=== PATIENT | female | born 1990 | race African-American/Black ===

== ENCOUNTER 2017-04-05 22:06 | Emergency (ER) | payer BC, OTHER | END 2017-04-05 23:01 | disposition home or self-care (01) | LOC: ER 22:06 | DX: S29.9XXA Unspecified injury of thorax, initial encounter (principal); S49.92XA Unspecified injury of left shoulder and upper arm, initial encounter; S99.922A Unspecified injury of left foot, initial encounter; V49.9XXA Car occupant (driver) (passenger) injured in unspecified traffic accident, initial encounter | CPT/HCPCS: 71020; 73030-LT; 73660-LT; 99284 ==

== ENCOUNTER 2017-04-20 17:52 | Emergency (ER) | payer BC, OTHER ==
[2017-04-20 20:31] LABS: BASOPHILS 0.4 %; BASOPHILS ABSOLUTE 0.02 10/3/uL (0.0-0.16); EOSINOPHILS ABSOLUTE 0.24 10/3/uL (0.0-0.53); ER CBC TAT 0 Hrs 09 Mins; HEMATOCRIT 36.8 % (36.0-48.0); HEMOGLOBIN 12.4 g/dL (12.0-16.0); LYMPHOCYTES 54.7 %; LYMPHOCYTES ABSOLUTE 2.64 10/3/uL (0.67-4.30); MEAN CORPUS HGB CONC 33.7 g/dL (32.0-36.0); MEAN CORPUSCULAR HEMOGLOB 34.2 pg (26.0-34.0); MEAN PLATELET VOLUME 11.3 fL (9.2-13.0); MONOCYTES 9.3 %; MONOCYTES ABSOLUTE 0.45 10/3/uL (0.21-1.20); NEUTROPHILS 30.6 %; NEUTROPHILS ABSOLUTE 1.48 10/3/uL (2.02-8.40); PLATELET COUNT 170 10/3/uL (150-400); RBC DISTRIBUTION WIDTH 12.4 % (12.0-16.0); RED CELL COUNT 3.63 10/6/uL (4.0-5.6); WHITE BLOOD CELLS 4.8 10/3/uL (4.5-10.5)
[2017-04-20 20:32] LABS: MANUAL DIFF NO %; MEAN CORPUSCULAR VOLUME 101.4 fL (80-100)
== END 2017-04-20 22:06 | disposition home or self-care (01) ==
LOC: ER 17:52
PROVIDERS: Specialist
DX: N93.8 Other specified abnormal uterine and vaginal bleeding (principal)
CPT/HCPCS: 76830; 76856; 84703; 85025; 99284